=== PATIENT | male | born 1970 | race Two or more races ===

== ENCOUNTER 2017-04-21 07:30 | Emergency (ER) | payer OTHER ==
[~2017-04-21] VITALS: Ht 170.2 cm; Wt 55.3 kg
--- NOTE | 2017-04-21 08:04 | NUR ---
PT IS IN ROOM #2A. DR MARQUEZ EVALUIATED THE PT.
--- NOTE | 2017-04-21 08:16 | NUR ---
PT WAS D/C TO HOME. D/C INSTRUCTIONS GIVEN TO THE PT.
[2017-04-21 08:17] VITALS: BP 129/72
== END 2017-04-21 08:18 | disposition home or self-care (01) ==
LOC: ER 07:30
DX: S63.502A Unspecified sprain of left wrist, initial encounter (principal); W18.30XA Fall on same level, unspecified, initial encounter; Y93.89 Activity, other specified; Y92.9 Unspecified place or not applicable; Y99.9 Unspecified external cause status
CPT/HCPCS: 73110; A4663